=== PATIENT | male | born 1970 | race Two or more races ===

== ENCOUNTER 2017-07-29 21:09 | Emergency (ER) | payer MEDICAID ==
[~2017-07-29] VITALS: Ht 177.8 cm; Wt 81.6 kg
[~2017-07-29 21:09] MED LIST: NKM
[2017-07-29 23:30] VITALS: BP 138/85
[2017-07-30 00:43] VITALS: BP 138/85
--- NOTE | 2017-07-30 05:13 | Emergency Room Report ---
History of Present Illness General Chief Complaint: Foreign Body Source: EMS Present Illness HPI Patient presents from nursing facility There was a report that the paramedics had arrived patient was reportedly given the Heimlich maneuver There was questionably some part of a diaper that had come out of the patient's mouth And the patient was sent in for further evaluation of possible foreign body ingestion Upon arrival the patient is awake and alert There was no evidence of any cough or acute distress Patient himself is developmentally delayed and does not provide any history This does limit the history of present illness significantly Allergies: Coded Allergies: No Known Allergies (Unverified , 03/01/15) Patient History Limited by: medical condition Past Medical History: see triage record Pertinent Family History: none Reviewed Nursing Documentation: PMH: Agreed, PSxH: Agreed Review of Systems All Other Systems: limited - Other than the ones mentioned in the history of present illness all others are reviewed however they do stay limited due to the patient's mental status Physical Exam Vital Signs Date Time Temp Pulse Resp B/P (MAP) Pulse Ox O2 Delivery O2 Flow Rate FiO2 07/29/17 21:09 97.7 68 18 123/65 95 Room Air Sp02 EP Interpretation: reviewed, normal General Appearance: well appearing, no apparent distress Head: normocephalic, atraumatic Eyes: bilateral eye PERRL, bilateral eye EOMI ENT: hearing grossly normal, normal pharynx Neck: full range of motion, supple Respiratory: lungs clear Cardiovascular #1: regular rate, rhythm, no edema Gastrointestinal: soft, no mass Musculoskeletal: other - No focal deficit Neurologic: alert, responsive Skin: normal color, no rash Lymphatic: no adenopathy Medical Decision Making Diagnostic Impression: Primary Impression: foreign body ingestion ER Course Patient was observed in the ER over several hours Continues to have appropriate respirations Hemodynamically stable no signs of any airway pathology X-ray imaging does not reveal any obvious metallic pathology if there was any foreign body ingested likely in the gastrointestinal tract at this time After further observation the ER patient is stable and appropriate for continued followup outpatient at the nursing facility Rhythm Strip Diag. Results EP Interpretation: yes Rate: 88 Rhythm: NSR, no PVC's, no ectopy Chest X-Ray Diagnostic Results Chest X-Ray Diagnostic Results : Chest X-Ray Ordered: Yes # of Views/Limited/Complete: 1 View Indication: Chest Pain EP Interpretation: Yes Interpretation: no consolidation, no effusion, no pneumothorax, other - Appearance of pulmonary congestion central vascular markings increased, questionable left lower lobe increased marking as well, Impression: Other - Evidence of pulmonary congestion Electronically Signed by: Shanta Hoang DO Other X-Ray Diagnostic Results Other X-Ray Diagnostic Results : X-Ray ordered: kub # of Views/Limited Vs Complete: 2 View Indication: Pain EP Interpretation: Yes Interpretation: no dislocation, no soft tissue swelling, no fractures, no sbo Impression: No acute disease Electronically Signed by: Shanta Hoang DO Last Vital Signs Date Time Temp Pulse Resp B/P (MAP) Pulse Ox O2 Delivery O2 Flow Rate FiO2 07/30/17 00:43 97.7 79 22 138/85 97 Room Air Status: improved Disposition: [facility] Condition: Improved Referrals: FIDENCIO ORTIZ (PCP) Patient Instructions: Swallowed Foreign Body, Adult Additional Instructions: Patient is provided with the discharge instructions notified to follow up with primary doctor in the next 2-3 days otherwise return to the er with any worsening symptoms. Please note that this report is being documented using YOGASMO[employer] technology. This can lead to erroneous entry secondary to incorrect interpretation by the dictating instrument. SHANTA HOANG D.O. Jul 30, 2017 05:13
--- NOTE | 2017-07-30 12:34 | Diagnostic Imaging Report ---
Indication: Chest pain Comparison: None A single view chest radiograph was obtained. Findings: Lung volumes are low. Bronchovascular markings are prominent. Heart size is prominent. Bones are unremarkable. Impression: Limited evaluation due to low lung wires.
--- NOTE | 2017-07-30 12:35 | Diagnostic Imaging Report ---
Indication: Chest and abdominal pain Comparison: None Single view of the abdomen obtained Findings: Bowel gas pattern is nonspecific. No mass, ectopic calcifications, or abnormal gas collections are identified. The bones are unremarkable. Impression: No acute findings
== END 2017-07-30 00:45 ==
LOC: EDBD 21:09 → EMR 21:50
DX: T18.9XXA Foreign body of alimentary tract, part unspecified, initial encounter (principal); X58.XXXA Exposure to other specified factors, initial encounter; Y92.89 Other specified places as the place of occurrence of the external cause
CPT/HCPCS: 71010; 74000; 99284

== ENCOUNTER 2017-10-16 23:26 | Emergency (ER) | payer MEDICAID ==
[~2017-10-16] VITALS: Ht 172.7 cm; Wt 77.1 kg
[2017-10-16 23:33] VITALS: BP 127/72
--- NOTE | 2017-10-16 23:37 | Emergency Room Report ---
History of Present Illness General Chief Complaint: Multiple Trauma/Fall Source: Medical Record, EMS Present Illness HPI Is a 47-year-old male from [place]. He has a history of severe mental retardation. He is bed bound unable to ablate. He was found on the floor. He falls frequently. He has some swelling and bruising to the left eyebrow area. No laceration. But in to be evaluated. No other complaint Allergies: Coded Allergies: No Known Allergies (Unverified , 03/01/15) Patient History Past Medical History: see triage record, old chart reviewed Past Surgical History: other Pertinent Family History: none Social History: Denies: smoking Immunizations: other Reviewed Nursing Documentation: PMH: Agreed, PSxH: Agreed Review of Systems Eye: Denies: eye pain, blurred vision ENT: Denies: ear pain, nose congestion, throat swelling Respiratory: Denies: cough, shortness of breath Cardiovascular: Denies: chest pain, palpitations Gastrointestinal: Denies: abdominal pain, diarrhea, nausea, vomiting Musculoskeletal: Denies: back pain, joint pain Skin: Denies: rash Neurological: Denies: headache, numbness Endocrine: Denies: increased thirst, increased urine Hematologic/Lymphatic: Denies: easy bruising All Other Systems: negative except mentioned in HPI Physical Exam Vital Signs Date Time Temp Pulse Resp B/P (MAP) Pulse Ox O2 Delivery O2 Flow Rate FiO2 10/16/17 23:23 98.6 105 20 127/72 98 Room Air vitals normal Sp02 EP Interpretation: reviewed, normal General Appearance: well appearing, no apparent distress, alert Head: normocephalic, other - Small hematoma to the left lateral eyebrow. No laceration. Eyes: bilateral eye PERRL, bilateral eye EOMI ENT: hearing grossly normal, normal pharynx Neck: full range of motion, supple, no meningismus Respiratory: chest non-tender, lungs clear, normal breath sounds Cardiovascular #1: regular rate, rhythm, no murmur Gastrointestinal: normal bowel sounds, non tender, no mass, no organomegaly, no bruit, non-distended Musculoskeletal: back normal, gait/station normal, normal range of motion Psychiatric: mood/affect normal Skin: warm/dry Medical Decision Making Diagnostic Impression: Primary Impression: Head injury, acute Qualified Codes: S09.90XA - Unspecified injury of head, initial encounter ER Course Patient with an acute head injury. No bleed or fracture. We'll discharge home. CT/MRI/US Diagnostic Results CT/MRI/US Diagnostic Results : Imaging Test Ordered: CT head Impression negative per radiologist Last Vital Signs Date Time Temp Pulse Resp B/P (MAP) Pulse Ox O2 Delivery O2 Flow Rate FiO2 10/16/17 23:23 98.6 105 20 127/72 98 Room Air Status: improved Disposition: [facility] SN[facility] Condition: Stable Additional Instructions: followup with your doctor as needed in 7 days. Return if worse. NERISSA GALINDO M.D. Oct 16, 2017 23:37
[2017-10-16] MEDS ORDERED: DiphenhydrAMINE 50mg/ml Inj IM ONE (23:45)
[2017-10-17] MEDS ORDERED: Haloperidol 5mg/ml Inj ONE (00:22)
[2017-10-17] MEDS ORDERED: Haloperidol 5mg/ml Inj IM ONE (00:30)
[2017-10-17 02:27] VITALS: BP 97/56
--- NOTE | 2017-10-17 09:09 | Diagnostic Imaging Report ---
Indication: Trauma Technique: Continuous helical CT scanning of the head was performed utilizing automated exposure control without intravenous contrast material. Axial and coronal reconstructions were obtained. Comparison: None CT dose: Total DLP 1544.93 mGycm; CTDI vol 70.38 mGy Findings: There is no acute intracranial hemorrhage, mass effect or cortical edema. The ventricles, cisterns and sulci are prominent consistent with atrophy. Subcortical and a ventricular hypoattenuation is seen, a nonspecific finding. The posterior fossa and fourth ventricle are grossly unremarkable. There is no calvarial fracture. There is mild left supraorbital soft tissue swelling. There is extensive paranasal sinus disease involving the bilateral maxillary sinuses and multiple ethmoid air cells. Mastoid air cells are clear. Impression: No evidence of acute intracranial hemorrhage, mass effect or cortical edema. Atrophy and white matter disease greater than expected for age. No prior exams to assess stability of these findings, including degree of ventricular dilatation. Comparison with prior exams, if available, recommended to assess for interval change. Alternatively, short-term interval follow-up exam recommended to assess ability. Extensive paranasal sinus disease. This is slightly discrepant from the preliminary report issued by the overnight radiologist. Findings and follow-up recommendations discussed with Dr. Nolan in the ED on a 8:56 AM 10/17/17. The CT scanner at [facility] is accredited by the [employer] and the scans are performed using protocols designed to limit radiation exposure to as low as reasonably achievable to attain images of sufficient resolution adequate for diagnostic evaluation.
== END 2017-10-17 02:30 ==
LOC: EDBD 23:26 → EMR 23:35
DX: W19.XXXD Unspecified fall, subsequent encounter (principal); S00.12XA Contusion of left eyelid and periocular area, initial encounter; W19.XXXA Unspecified fall, initial encounter; Y92.129 Unspecified place in nursing home as the place of occurrence of the external cause; R41.82 Altered mental status, unspecified; Z74.01 Bed confinement status; Z91.81 History of falling; J32.9 Chronic sinusitis, unspecified
CPT/HCPCS: 70450; 96372; 99284; J1200; J1630

== ENCOUNTER 2018-03-26 21:07 | Emergency (ER) | payer MEDICAID, OTHER ==
[~2018-03-26] VITALS: Ht 177.8 cm; Wt 68.0 kg
[2018-03-26 21:15] VITALS: BP 122/78
[2018-03-26] MEDS ORDERED: DOCUSATE SODIU100 MG ORAL (21:19)
[2018-03-26] MEDS ORDERED: ACETAMINOPHEN325 M1 ORAL (21:19)
[2018-03-26] MEDS ORDERED: MILK OF MA2400 MG/10 ORAL (21:19)
[2018-03-26] MEDS ORDERED: GERI-TUSSIN DM473 ML PO (21:19)
[2018-03-26] MEDS ORDERED: ATIVAN0.5 MG ORAL (21:19)
--- NOTE | 2018-03-26 21:22 | Emergency Room Report ---
History of Present Illness General Chief Complaint: Foreign Body Source: Medical Record, EMS Present Illness HPI Patient was brought in by paramedics for reports of possible foreign body ingestion Initial report is stating likely diaper However there was question of the unknown status of the foreign body Patient himself is stable mentally delayed Is not verbal with us and cannot provide history This incident happened prior to arrival There is no evidence of active vomiting patient is awake Does not appear in acute distress And presents for further evaluation Allergies: Coded Allergies: No Known Allergies (Unverified , 03/01/15) Patient History Limited by: medical condition Past Medical History: see triage record Pertinent Family History: none Reviewed Nursing Documentation: PMH: Agreed; PSxH: Agreed Nursing Documentation-PMH Past Medical History: No History, Except For Hx Neurological Problems: Yes - encephalitis,developm.delay,anxiety Review of Systems All Other Systems: limited - Other than the ones mentioned in the history of present illness all others are reviewed however they do stay limited due to the patient's mental status Physical Exam Vital Signs Date Time Temp Pulse Resp B/P (MAP) Pulse Ox O2 Delivery O2 Flow Rate FiO2 03/26/18 21:07 98.4 86 20 119/76 95 Room Air 98.4 Sp02 EP Interpretation: reviewed, normal General Appearance: well appearing, no apparent distress Head: normocephalic, atraumatic Eyes: bilateral eye PERRL, bilateral eye EOMI ENT: normal pharynx, no angioedema, uvula midline Neck: supple Respiratory: lungs clear, normal breath sounds, no respiratory distress, no retraction, no accessory muscle use Cardiovascular #1: regular rate, rhythm, no edema Gastrointestinal: non tender, soft, no mass, abnormal bowel sounds Musculoskeletal: other - Patient has chronic disability with deformity to the extremities no obvious acute trauma Neurologic: responsive Skin: normal color, no rash Lymphatic: no adenopathy Medical Decision Making Diagnostic Impression: Primary Impression: Foreign body ingestion ER Course Patient presents with reports of possible foreign body ingestion Possible diaper Patient at this time does not show any signs of upper respiratory distress Patient able to swallow without any difficulty Has a benign medical evaluation Imaging study was obtained for further evaluation Chest x-ray and KUB were negative Patient remains hemodynamically stable And at this time will have close outpatient follow-up Chest X-Ray Diagnostic Results Chest X-Ray Diagnostic Results : Chest X-Ray Ordered: Yes # of Views/Limited/Complete: 1 View Indication: Chest Pain EP Interpretation: Yes Interpretation: no consolidation, no effusion, no pneumothorax Impression: No acute disease Electronically Signed by: Shanta Nolan DO Other X-Ray Diagnostic Results Other X-Ray Diagnostic Results : X-Ray ordered: KUB # of Views/Limited Vs Complete: 1 View Indication: Pain EP Interpretation: Yes Interpretation: no dislocation, no soft tissue swelling, no fractures Impression: No acute disease Electronically Signed by: Shanta Nolan DO Last Vital Signs Date Time Temp Pulse Resp B/P (MAP) Pulse Ox O2 Delivery O2 Flow Rate FiO2 03/26/18 21:07 98.4 86 20 119/76 95 Room Air 98.4 Status: improved Disposition: ER SNF Condition: Stable Additional Instructions: Patient is provided with the discharge instructions notified to follow up with primary doctor in the next 2-3 days otherwise return to the er with any worsening symptoms. Please note that this report is being documented using DRAGON technology. This can lead to erroneous entry secondary to incorrect interpretation by the dictating instrument. Shanta Nolan DO Mar 26, 2018 21:22
[2018-03-26 21:45] VITALS: BP 120/80
[2018-03-26 21:50] VITALS: BP 120/80
--- NOTE | 2018-03-26 22:27 | Diagnostic Imaging Report ---
EXAM: XR Chest, 1 View CLINICAL HISTORY: FB TECHNIQUE: Frontal view of the chest. COMPARISON: No relevant prior studies available. FINDINGS: Lungs: No acute or suspicious findings. No consolidation. Pleural space: No acute or suspicious findings. No pneumothorax. Heart: No acute or suspicious findings. No cardiomegaly. Mediastinum: No acute or suspicious findings. Bones/joints: No acute or suspicious findings. IMPRESSION: Normal chest x-ray.
--- NOTE | 2018-03-26 22:29 | Diagnostic Imaging Report ---
EXAM: XR Abdomen, 2 Views CLINICAL HISTORY: FB TECHNIQUE: Frontal view of the abdomen/pelvis with upright view of the abdomen. COMPARISON: No relevant prior studies available. FINDINGS: Intraperitoneal space: No free air. Gastrointestinal tract: No acute or suspicious findings. No dilation. Bones/joints: No acute or suspicious findings. Soft tissues: No radiopaque foreign body. IMPRESSION: No acute findings.
== END 2018-03-26 23:59 ==
LOC: EDBD 21:07 → EMR 23:53
DX: T18.9XXA Foreign body of alimentary tract, part unspecified, initial encounter (principal); X58.XXXA Exposure to other specified factors, initial encounter; Y92.199 Unspecified place in other specified residential institution as the place of occurrence of the external cause; F41.9 Anxiety disorder, unspecified; Z86.61 Personal history of infections of the central nervous system
CPT/HCPCS: 71045; 74018; 99284